=== PATIENT | male | born 1965 | race Two or more races ===

== ENCOUNTER 2020-04-26 15:17 | Inpatient (IN) | payer OTHER ==
[~2020-04-26] VITALS: Ht 175.3 cm; Wt 82.1 kg
[2020-04-28] MEDS ORDERED: CIPRO500 MG PO (14:19)
[2020-04-28] MEDS ORDERED: PROTONIX40 MG PO (14:19)
== END 2020-04-28 21:03 | disposition home or self-care (01) | DRG 343 ==
LOC: ER 15:17 → SURH 19:31 → SEC-K 19:31 → SURH 23:59
PROVIDERS: ADMIT Surgery; ATTEND Surgery
PROC: BW2110Z Computerized Tomography (CT Scan) of Abdomen and Pelvis using Low Osmolar Contrast, Unenhanced and Enhanced (ICD-10-PCS; 2020-04-26)
PROC: 0DTJ0ZZ Resection of Appendix, Open Approach (ICD-10-PCS; principal; 2020-04-26 21:00)
DX: K35.31 Acute appendicitis with localized peritonitis and gangrene, without perforation (principal); Z20.822 Contact with and (suspected) exposure to COVID-19